=== PATIENT | male | born 1945 | race Caucasian/White ===

== ENCOUNTER 2021-01-29 00:26 | Outpatient (CLI) | payer OTHER, SELFPAY ==
--- NOTE | 2021-01-29 10:20 | DI.US_ITS ---
APPROVED REPORT EXAM: Comprehensive 2D, Doppler, and color-flow Echocardiogram Patient Location: Out-Patient Recreation Leader: Morena Carson RDCS (AE) Indications: SOB on exertion, HTN, COPD Other Information Study Quality: Adequate Conclusion Left Ventricle : The left ventricle is normal size. The left ventricular systolic function is normal. The left ventricular ejection fraction is within the normal range. There is normal left ventricular wall thickness. There is normal LV segmental wall motion. The left ventricular diastolic function is normal. LVEF is 60%. Right Ventricle : The right ventricle is normal size. The right ventricular systolic function is norm al. The RVSP is 28.1mmHg. Atria : The left atrium size is normal. The right atrium size is normal. Valves: There are no hemodynamically significant valvular lesions. Great Vessels : The aortic root is normal in size. The ascending aorta is mildly dilated. Aortic arch is normal in caliber. IVC is normal in size and collapses >50% with inspiration. Wall motion Left Ventricle The left ventricle is normal size. The left ventricular systolic function is normal. The left ventric ular ejection fraction is within the normal range. There is normal left ventricular wall thickness. T here is normal LV segmental wall motion. The left ventricular diastolic function is normal. There is no ventricular septal defect visualized. LVEF is 60%. Right Ventricle The right ventricle is normal size. The right ventricular systolic function is normal. The RVSP is 28 .1mmHg. Atria The left atrium size is normal. The right atrium size is normal. The interatrial septum is intact wit h no evidence for an atrial septal defect. Atrial septal aneurysm is present. Aortic Valve The aortic valve is normal in structure. Aortic valve is trileaflet. There is no aortic valvular sten osis. No aortic regurgitation is present. Mitral Valve The mitral valve is normal in structure. No evidence of mitral valve stenosis. Trace mitral regurgita tion. Tricuspid Valve The tricuspid valve is normal in structure. There is no tricuspid valve stenosis. Trace to mild tricu spid regurgitation. Pulmonic Valve The pulmonary valve is normal in structure. There is no pulmonic valvular stenosis. Trace pulmonic re gurgitation. Great Vessels The aortic root is normal in size. The ascending aorta is mildly dilated. Aortic arch is normal in ca liber. IVC is normal in size and collapses >50% with inspiration. Pericardium There is no pericardial effusion. 2D Dimensions IVSD d PLAX 0.92 cm M: 0.6-1.2 LV Vol A2C d MOD 116.7 mL LVPW d PLAX 0.90 cm M: 0.6 - 1.2 LV Vol A4C d MOD 127.9 mL LVID d PLAX 5.16 cm M: 4.2 - 5.8 LA vol/ BSA A2C s A-L 26.8 mL/m2 LVDs 3.45 cm M: 2.5 - 4.0 LA vol/ BSA A4C s A-L 25.1 mL/m2 Ao Root d 3.39 cm M: 3.1 - 3.7 LA Vol/ BSA Biplane s A-L 26.8 mL/m2 RA Area A4C 13.73 cm2 LA Area A4C s MOD 17.97 cm2 RA Vol/ BSA A4C s A-L 15.8 mL/m2 LA Area A2C s MOD 18.01 cm2 Ao Asc Diam d 3.98 cm M: 2.6 - 3.4 LV EF A4C MOD 61.6 % LV EF Teichholz 60.4 % LV EF A2C MOD 60.6 % LVEF (Fulton's) 61.21 % M: 52 - 72 LV EF Biplane MOD 61.2 % LV Volume 91.29 mL M: 62 - 150 SV 76.16 mL LV Volume Index 42.65 mL/m2 M: 34 - 74 SV Index 35.60 mL/m2 LV Vol Biplane MOD 124.4 mL FS 32.40 % M-Mode TAPSE 2.78 cm (M/F) >1.7 LV Diastology MV E' medial 0.083 (>0.07 m/s) E/A Ratio 0.8 LV E/e MED 8.60 (<14) MV E Vmax 0.72 (0.4-1.3 m/s) MV E' lateral 0.083 (>0.1 m/s) MV A Vmax 0.85 (0.4-1.3 m/s) LV E/e LAT 8.60 (<14) MV E/A Ratio 0.82 MV E/E' medial 8.64 MV E/E' lateral 8.64 Aortic Valve LVOT Area 2.90 cm2 AoV Area Vmax 1.69 cm2 LVOT Vmax 1.05 m/s AoV Area/ BSA (Vmax) 0.79 cm2/m2 LVOT Mean Pedro. 0.65 m/s FANNY Mean Pedro. 1.54 cm2 LVOT Peak Grad 4.4 mmHg FANNY Mean Pedro. Index 0.72 cm2/m2 LVOT Mean Grad 2.0 mmHg LVOT VTI 0.220 m LVOT Diam s 1.90 cm AoV Vmax 1.81 m/s Velocity Ratio 0.58 AoV Mean Pedro. 1.22 m/s AoV Peak Grad 13.1 mmHg LVOT SV 63.80 mL AoV Mean Grad 6.9 mmHg AoV VTI 0.338 m AoV Area VTI 1.89 cm2 AoV Area/ BSA (VTI) 0.88 cm/m2 Mitral Valve MV DT 199 (160-240 msec) MV PHT 58 msec MV Area PHT 3.81 cm2 MV VTI 0.345 m MV Area VTI 1.85 (4.0-6.0 cm2) Pulmonary Valve PV Vmax 0.95 (0.5-1.5 m/s) RVOT Peak Gr. 2.19 mmHg PV Peak Grad 3.6 mmHg RVOT Mean Gr. 1.10 mmHg PV Mean Grad 1.9 mmHg RVOT VTI 0.168 m PV VTI 0.211 m RVOT Vmax 0.74 m/s Tricuspid Valve TR Peak Grad 25.0 mmHg TR Vmax 2.50 m/s RA Pressure 3.00 mmHg RVSP (TR) 28.1 mmHg
== END 2021-01-29 00:46 ==
PROVIDERS: PCP Nurse Practitioner Primary Care; Visit Provider Nurse Practitioner Primary Care
DX: R06.02 Shortness of breath (principal); I10 Essential (primary) hypertension; J44.9 Chronic obstructive pulmonary disease, unspecified; I77.810 Thoracic aortic ectasia
CPT/HCPCS: 93306

== ENCOUNTER 2021-08-10 12:20 | Emergency (ER) | payer OTHER, SELFPAY ==
[2021-08-10 12:27] VITALS: BP 140/63; PULSE 64; RESP 16; TEMP 36.7; O2SAT 97
--- NOTE | 2021-08-10 12:45 | DI.US_ITS ---
Exam(s) US LOWER EXTREMITY VENOUS RT EXAM: US LOWER EXTREMITY VENOUS RT CLINICAL HISTORY: Pain swelling behind right knee, R/O DVT TECHNIQUE: Grayscale, color, and doppler imaging of the deep venous system of the lower extremity w as performed. COMPARISON: US US ECHOCARDIOGRAM from 01/29/2021 FINDINGS: There is no evidence of intraluminal thrombus and there is normal compression and augmentation demons trated within the common femoral vein, femoral vein, and popliteal vein. In the ipsilateral calf the interrogated veins also exhibit normal compression/ augmentation properti es. The ipsilateral saphenofemoral junction is patent. Incidentally noted is a Hess cyst in the popliteal fossa measuring 5 x 1.8 x 3.2 cm. Appears comple x IMPRESSION: 1. No evidence of DVT in the right lower extremity. 2. 5 cm hess cyst noted in the popliteal fossa DATA REPOSITORY:
--- NOTE | 2021-08-10 13:00 | DI.RAD_ITS ---
Exam(s) XR KNEE RT 3V AP,LAT,FRANCESCA EXAM: XR KNEE RT 3V AP,LAT,FRANCESCA CLINICAL HISTORY: Right knee pain. TECHNIQUE: 2D digital imaging was performed. COMPARISON: No exams were available for comparison FINDINGS: Three views of the right knee reveal no evidence of fracture or obvious joint effusion. There are mi ld degenerative changes in the medial compartment. Lateral compartment appears unremarkable. Fabell a is noted posterolaterally. Also vascular calcification. IMPRESSION: DATA REPOSITORY: RADIATION DOSE DELIVERED:
--- NOTE | 2021-08-10 13:11 | ED.GENADUL_ITS ---
Discharge Plan Disposition Patient Disposition: HOME Condition: Stable Discharge Details Clinical Impression: Synovial cyst of popliteal space [Hess], right knee Primary Care Provider: Cayla Capone ED Provider: Hermelinda Benitez Discharge Instructions Instructions: Hess Cyst (ED) Additional Instructions: The ultrasound shows a posterior moderate size Hess's cyst. No blood clot. I do suspect this is the cause for your pain. Rest, ice, compression, elevation. Follow-up with orthopedics in the next 1 to 2-week. Follow up with primary care provider in 3-5 days. Return to ED sooner if any worsening or concerns. Increase oral fluids. Please take Tylenol or Ibuprofen with food every 4-6 hours as needed for pain and swelling. Referrals: Say Martinez MD [ [facility] STAFF PHYSICIAN] - 1 week Cayla Capone [Primary Care Provider] - Discharge Data Discharge Date/Time-TO BE ENTERED AT DEPARTURE: 08/10/21 14:34 Medical Decision Making 75-year-old male presents to the ER chief complaint of right knee pain. He reports intermittent swelling and pain for the last 5 weeks. Most notably in the popliteal space. He denies any calf pain or erythema. Denies any fever chills or any other associated symptoms. He describes pain as an aching sensation sometimes in the anterior patella. He was sent here by his PCP for ultrasound to rule out DVT. He denies being on any blood thinners currently. He did not take any medication for pain or swelling prior to arrival. He is alert and oriented. X-ray right knee and R lower extremity Doppler ultrasound to rule out DVT ordered at this time. EXAM: US LOWER EXTREMITY VENOUS RT COMPARISON: US US ECHOCARDIOGRAM from 01/29/2021 FINDINGS: There is no evidence of intraluminal thrombus and there is normal compression and augmentation demonstrated within the common femoral vein, femoral vein, and popliteal vein. In the ipsilateral calf the interrogated veins also exhibit normal compression/ augmentation properties. The ipsilateral saphenofemoral junction is patent. Incidentally noted is a Hess cyst in the popliteal fossa measuring 5 x 1.8 x 3.2 cm. Appears complex IMPRESSION: 1. No evidence of DVT in the right lower extremity. 2. 5 cm hess cyst noted in the popliteal fossa EXAM: XR KNEE RT 3V AP,LAT,FRANCESCA CLINICAL HISTORY: Right knee pain. TECHNIQUE: 2D digital imaging was performed. COMPARISON: No exams were available for comparison FINDINGS: Three views of the right knee reveal no evidence of fracture or obvious joint effusion. There are mild degenerative changes in the medial compartment. Lateral compartment appears unremarkable. Fabella is noted posterolaterally. Also vascular calcification. Patient given Jovany wrap and referral to orthopedics instructed on RICE procedures. This text was generated using [employer] dictation system, please disregard any oddities of phrase or misspellings. Patient placed on the orthopedic follow-up list care management. HPI General Mode of arrival: ambulatory . Date/Time Provider Initiated Documentation: 08/10/21 12:41 . Limitations to Documentation: no limitations . Information obtained by: patient, RN notes reviewed and old records reviewed . HPI Narrative: 75-year-old male presents to the ER chief complaint of right knee pain. He reports intermittent swelling and pain for the last 5 weeks. Most notably in the popliteal space. He denies any calf pain or erythema. Denies any fever chills or any other associated symptoms. He describes pain as an ach ing sensation sometimes in the anterior patella. He was sent here by his PCP for ultrasound to rule out DVT. He denies being on any blood thinners currently. He did not take any medication for pain or swelling prior to arrival. He is alert and oriented Related Data Allergies Allergy/AdvReac Type Severity Reaction Status Date / Time bacitracin Allergy Intermediate Hives Unverified 08/10/21 12:30 General Stated Complaint: Vascular MÓNICA: 3 Review of Systems All systems reviewed & are unremarkable except as noted in HPI and below [facility] Social History Smoking risk assessment performed?: No Do you feel safe at home: Yes Do you feel safe in your relationship?: Yes Exam Const General: cooperative, healthy appearing, comfortable, well developed and well groomed Nutritional Appearance: average body habitus and well nourished Orientation: alert, awake and oriented x3 Resp Effort & Inspection: able to speak in complete sentences, no audible wheezes, no cough and no respiratory distress Auscultation: clear to auscultation bilaterally Cardio Rate: regular rate Rhythm: regular rhythm Heart Sounds: S1 normal Extrem Right lower extremity: full ROM, normal capillary refill and knee Details: normal to inspection, tenderness, swelling Location: of the popliteal fossa and normal ROM; no ecchymosis and no unusual warmth; no cyanosis, no edema and lower leg not examined Course Vital Signs Vital signs: Vital Signs Temperature 36.7 C 08/10/21 12:27 Pulse 64 08/10/21 12:27 Respiratory Rate 16 08/10/21 12:27 Blood Pressure 140/63 08/10/21 12:27 Pulse Oximetry 97 08/10/21 12:27 Temperature 36.7 C 08/10/21 12:27 Temperature Source Temporal Artery Scan 08/10/21 12:27 Pulse 64 08/10/21 12:27 Respiratory Rate 16 08/10/21 12:27 Blood Pressure 140/63 08/10/21 12:27 Blood Pressure Position Sitting 08/10/21 12:27 Pulse Oximetry 97 08/10/21 12:27 Oxygen Delivery Method Room Air 08/10/21 12:27 Oxygen Flow Rate 0 08/10/21 12:27 Pain Level 4 08/10/21 12:27
== END 2021-08-10 14:34 | disposition home or self-care (01) ==
PROVIDERS: Emergency Provider Registered Nurse Emergency; PCP Nurse Practitioner Primary Care
DX: M71.21 Synovial cyst of popliteal space [Baker], right knee (principal)
CPT/HCPCS: 73562; 99284; 93971

== ENCOUNTER 2022-12-20 14:12 | Emergency (ER) | payer OTHER, SELFPAY ==
[2022-12-20 14:18] VITALS: BP 130/75; PULSE 56; RESP 18; TEMP 36.6; O2SAT 96
--- NOTE | 2022-12-20 14:30 | DI.RAD_ITS ---
Exam(s) XR SHOULDER RT COMPLETE 2+V EXAM: XR SHOULDER RT COMPLETE 2+V CLINICAL HISTORY: Right shoulder pain sp fall. TECHNIQUE: 2D digital imaging was performed of the right shoulder. Four images were obtained. AP, Grashey, and Y views were obtained. The patient was unable to tolerate an axillary view. COMPARISON: No exams were available for comparison FINDINGS: BONES: No acute fracture is present. No bony destructive lesion is seen. There are postsurgical hess es seen in the scapula. JOINTS: No dislocation present. Degenerative changes are seen at the acromioclavicular joint. SOFT TISSUE: Normal. IMPRESSION: No acute fracture or dislocation. DATA REPOSITORY: RADIATION DOSE DELIVERED:
--- NOTE | 2022-12-20 14:34 | W.ED.GENAD ---
Discharge Plan Disposition Patient Disposition: Home Discharge Details Clinical Impression: Acute pain of right shoulder Primary Care Provider: Cayla Capone ED Provider: Medardo Mckinney [place] Meds and New Rx's Prescriptions: New lidocaine [Lidoderm] 5 % adhesive patch,medicated 1 patch topical DAILY Qty: 15 0RF Rx Instructions: leave on most painful area for up to 12 hrs Continued multivitamin Tablet 1 tab PO DAILY atorvastatin 40 mg tablet 40 mg PO 1XD Patient Comments: 1 tablet by mouth once a day fluticasone propion-salmeterol 250-50 mcg/dose Blister With Device 1 inh INHALATION BID clonidine HCl 0.1 mg tablet 0.1 mg PO BID Patient Comments: 1 tablet by mouth twice a day as needed lidocaine [Lidocaine Pain Relief] 4 % Adhesive Patch,Medicated 1 patch TOPICAL DAILY PRN cromolyn 4 % drops 2 drp ophthalmic (eye) 4XD Patient Comments: 2 drop into left eye three times a day as needed tamsulosin 0.4 mg capsule 0.8 mg PO DAILY Patient Comments: 2 capsule by mouth once a day amlodipine 10 mg tablet 10 mg PO 1XD Patient Comments: 1 tablet by mouth once a day diclofenac sodium 0.1 % Drops 1 drp ophthalmic (eye) PRN PRN omeprazole 20 mg capsule,delayed release(DR/EC) 20 mg PO 1XD Patient Comments: 1 capsule by mouth once a day hydrochlorothiazide 25 mg tablet 25 mg PO DAILY Patient Comments: 1 tablet by mouth once a day gabapentin 100 mg Capsule 100 mg PO HS albuterol 90 mcg/actuation Aerosol 2 mcg INHALATION TID calcium carbonate-vitamin D2 600 mg calcium- 200 unit Tablet 200 tab PO DAILY epinephrine 0.3 mg/0.3 mL Auto-Injector 0.3 mg IM ONCE PRN Rx Instructions: as a single dose; may repeat once losartan 100 mg tablet 100 mg PO DAILY Patient Comments: 1 tablet by mouth once a day glipizide 5 mg tablet 5 mg PO 1XD Patient Comments: 1 tablet by mouth twice a day carboxymethylcellulose Granules 0.5 grnl MISCELLANEOUS 4XD capsaicin 0.1 % Cream 0.1 applic TOPICAL BID cholecalciferol (vitamin D3) 25 mcg (1,000 unit) Tablet 25 mcg PO DAILY melatonin 5 mg Tablet 10 mg PO DAILY alogliptin 12.5 mg tablet 12.5 mg PO DAILY Patient Comments: 1 tablet by mouth once a day Discharge Instructions Instructions: Shoulder Pain (ED) Additional Instructions: Please read all of the information that accompanies these instructions. You were seen in the emergency department for your shoulder pain. Your x-ray showed no sign of any fractures. As we discussed, you may benefit from an MRI but you should follow-up with your primary care provider. Please schedule an appointment with your primary care provider later this week. Please return to the emergency department if you lose sensation in your hand or have worsening pain. For your pain please take medications as follows: 1. Take acetaminophen (Tylenol), 1,000 mg (two 500 mg tabs) every 6 hours 2. Take ibuprofen (Advil), 200 mg every 6 hours. You are also receiving a prescription for a patch with numbing medicine which you should use as directed. Discharge Data Discharge Date/Time-TO BE ENTERED AT DEPARTURE: 12/20/22 16:06 Medical Decision Making Primary survey intact. Reassuring shock index. On secondary survey patient has tenderness over his right shoulder. Will obtain radiographs to assess for any acute osseous abnormalities. Based on the patient's clinical exam my suspicion is extremely low for dislocation. No head strike nor nausea nor vomiting to suggest intracranial hemorrhage. No hypoxia nor tachycardia and no reported shortness of breath so doubt pneumothorax. If plain films are negative suspect that patient will benefit from outpatient follow-up with his PMD with the possibility of MRI if the patient's symptoms persist as it certainly possible that he could have ligamentous injury as opposed to a MSK strain. He has good strength in his right upper extremity so my suspicion is low for brachial plexus injury. No midline cervical or thoracic spinal tenderness to suggest benefit from CT cervical nor thoracic spine. Based on mechanism my suspicion is exceedingly low for scapular fracture so will defer CT scan at this juncture. Given no abdominal pain and duration of time since fall I am not concerned for referred pain from an intraabdominal injury. Warm well-perfused right hand so doubt vascular injury. 3:30 PM X-ray negative. Will pursue an empiric trial of expectant outpatient management. I did recommend to the patient that he follow-up with his primary care provider as I advised concerned that he may benefit from an MRI if his symptoms do not improve with conservative management. We discussed the possibility of a ligamentous injury. HPI General Date/Time Provider Initiated Documentation: 02/27/23 14:34. HPI Narrative: This is a [id number] 76-year-old male not anticoagulated arrived to the emergency department via private vehicle in the setting of a fall. Patient reports that 5 or 6 days ago he was walking down a paved driveway while walking his dog. He inadvertently stepped on some black ice and slipped. He fell backwards and landed on his back. He subsequently, 3 to 4 days ago, developed pain in his right shoulder. He did not hit his head. He has not been nauseous nor vomiting. He denies loss of consciousness. He is not anticoagulated. Related Data Home Medications Medication Instructions Recorded Confirmed albuterol 90 mcg/actuation aerosol 2 mcg inhalation TID 12/20/22 12/20/22 inhaler alogliptin 12.5 mg tablet 12.5 mg PO DAILY 12/20/22 12/20/22 amlodipine 10 mg tablet 10 mg PO 1XD 12/20/22 12/20/22 atorvastatin 40 mg tablet 40 mg PO 1XD 12/20/22 12/20/22 calcium carb-ergocalciferol (vit 200 tab PO DAILY 12/20/22 12/20/22 D2) 600 mg calcium-200 unit tablet capsaicin 0.1 % topical cream 0.1 applic topical BID 12/20/22 12/20/22 carboxymethylcellulose 0.5 grnl miscellaneous 4XD 12/20/22 12/20/22 cholecalciferol (vitamin D3) 25 25 mcg PO DAILY 12/20/22 12/20/22 mcg (1,000 unit) tablet clonidine HCl 0.1 mg tablet 0.1 mg PO BID 12/20/22 12/20/22 cromolyn 4 % eye drops 2 drp ophthalmic (eye) 4XD 12/20/22 12/20/22 diclofenac sodium 0.1 % eye drops 1 drp ophthalmic (eye) PRN PRN 12/20/22 12/20/22 epinephrine 0.3 mg/0.3 mL 0.3 mg IM ONCE PRN 12/20/22 12/20/22 injection, auto-injector fluticasone 250 mcg-salmeterol 50 1 inh inhalation BID 12/20/22 12/20/22 mcg/dose blistr powdr for inhalation gabapentin 100 mg capsule 100 mg PO HS 12/20/22 12/20/22 glipizide 5 mg tablet 5 mg PO 1XD 12/20/22 12/20/22 hydrochlorothiazide 25 mg tablet 25 mg PO DAILY 12/20/22 12/20/22 lidocaine 4 % topical patch 1 patch topical DAILY PRN 12/20/22 12/20/22 (Lidocaine Pain Relief) lidocaine 5 % topical patch 1 patch topical DAILY #15 ea 12/20/22 (Lidoderm) losartan 100 mg tablet 100 mg PO DAILY 12/20/22 12/20/22 melatonin 5 mg tablet 10 mg PO DAILY 12/20/22 12/20/22 multivitamin 1 tab PO DAILY 12/20/22 12/20/22 omeprazole 20 mg capsule,delayed 20 mg PO 1XD 12/20/22 12/20/22 release tamsulosin 0.4 mg capsule 0.8 mg PO DAILY 12/20/22 12/20/22 Previous Rx's Medication Instructions Recorded lidocaine 5 % topical patch 1 patch topical DAILY #15 ea 12/20/22 (Lidoderm) Allergies Allergy/AdvReac Type Severity Reaction Status Date / Time bacitracin Allergy Intermediate Hives Unverified 12/20/22 14:23 antivenin,crotalidae Allergy Unverified 12/20/22 15:10 polyvalent imm felodipine Allergy Unverified 12/20/22 15:10 lisinopril Allergy Unverified 12/20/22 15:10 niacin Allergy Unverified 12/20/22 15:10 General Stated Complaint: Orthopedic MÓNICA: 4 PFSH All Active Problems (Updated 12/20/22 @ 15:30 by Medardo Mckinney MD) Synovial cyst of popliteal space [Hess], right knee (Acute) Acute pain of right shoulder (Acute) Social History Smoking/Tobacco Use Status: Never Smoking risk assessment performed?: Yes Alcohol Intake: current Alcohol Intake frequency: a few times a week Drug use: Daily Substance use type: marijuana Do you feel safe at home: Yes Do you feel safe in your relationship?: Yes Exam Narrative Exam Narrative: General: Well-appearing in no acute distress speaking in complete sentences. Head: Normocephalic, atraumatic Ear, nose, mouth, throat: Grossly normal inspection. Normal voice, handling secretions normally. Neck: Trachea midline. Cardiovascular: Well-perfused distal extremities. Respiratory: Nonlabored respiration. Gastrointestinal: Nondistended abdomen. Musculoskeletal: No edema. Moving all 4 extremities spontaneously. Right upper extremity with 5 out of 5 strength in flexion and extension at the elbow and flexion and extension at the wrist. No pain with pronation and supination. Right hand warm and well-perfused with 2+ right radial pulse. Sensation and motor function intact in the right hand across the radial, median, and ulnar nerve distributions. Patient is able to abduct his shoulder to approximately 90 degrees. He is able to flex his shoulder approximately 90 degrees. He can extend his shoulder approximately 15 degrees. He is able to touch his right hand to his contralateral left shoulder Skin: Normal for age and race, grossly normal temperature and turgor. No acute rash. Neurologic: Alert and appropriate, no apparent acute deficits. Psychiatric: Mood and manner are appropriate. Grooming and personal hygiene are appropriate. Course Vital Signs Vital signs: Vital Signs Temperature 36.6 C 12/20/22 14:18 Pulse 56 L 12/20/22 14:18 Respiratory Rate 18 12/20/22 14:18 Blood Pressure 130/75 12/20/22 14:18 Pulse Oximetry 96 12/20/22 14:18 Temperature 36.6 C 12/20/22 14:18 Temperature Source Oral 12/20/22 14:18 Pulse 56 L 12/20/22 14:18 Respiratory Rate 18 12/20/22 14:18 Respiratory Effort Normal, Non-Labored 12/20/22 14:23 Blood Pressure 130/75 12/20/22 14:18 Blood Pressure Position Sitting 12/20/22 14:18 Pulse Oximetry 96 12/20/22 14:18 Oxygen Delivery Method Room Air 12/20/22 14:18 Oxygen Flow Rate 0 12/20/22 14:18 PAWSS Have you Been Recently Intoxicated or Drunk Within the Last 30 days?: No Have you Ever Experienced Previous Episodes of Alcohol Withdrawal?: No Have you ever Experienced Withdrawal Seizures?: No Have you ever Experienced Delirium Tremens(DT)s?: No Have you ever undergone Alcohol Rehabilitation Treatment (i.e, inpt ot outpatient treatment programs)?: No Have you ever Experienced Blackouts?: No Have you ever Combined Alcohol with other Downers within the last 90 days?: No Have you ever Combined Alcohol with any other Substance of Abuse during the last 90 days?: No Positive Blood Alcohol level on Presentation? [PCS.BAL]: No Evidence of Increased Autonomic Activity (i.e. HR>120, tremor, sweating, agitation, nausea)?: No Result: 0
[2022-12-20 16:01] VITALS: BP 115/76; PULSE 73; RESP 18; TEMP 36.9; O2SAT 94
== END 2022-12-20 16:06 | disposition home or self-care (01) ==
PROVIDERS: Emergency Provider Emergency Medicine; PCP Nurse Practitioner Primary Care
DX: G89.11 Acute pain due to trauma (principal); M25.511 Pain in right shoulder; W00.0XXA Fall on same level due to ice and snow, initial encounter; Y93.K1 Activity, walking an animal; Y92.480 Sidewalk as the place of occurrence of the external cause
CPT/HCPCS: 99283; 73030; 99284

== ENCOUNTER 2024-08-05 13:24 | Emergency (ER) | payer OTHER, SELFPAY ==
[2024-08-05] VITALS (19 sets, daily range): BP systolic 130–159; BP diastolic 68–85; PULSE 52–105; RESP 18; TEMP 36.6; O2SAT 91–97
--- NOTE | 2024-08-05 13:47 | ED.GENADUL_ITS ---
Discharge Plan Disposition Patient Disposition: Home Condition: Stable Discharge Details Clinical Impression: Acute UTI Primary Care Provider: Cayla Capone ED Provider: Hermelinda Benitez Home Meds and New Rx's Prescriptions: New cephalexin 500 mg capsule 500 mg PO BID 7 Days Qty: 14 0RF Rx Instructions: Take 1 capsule by mouth twice daily for the next 7 days No Action multivitamin Tablet 1 tab PO DAILY atorvastatin 40 mg tablet 40 mg PO 1XD Patient Comments: 1 tablet by mouth once a day fluticasone propion-salmeterol 250-50 mcg/dose Blister With Device 1 inh INHALATION BID clonidine HCl 0.1 mg tablet 0.1 mg PO BID Patient Comments: 1 tablet by mouth twice a day as needed lidocaine [Lidocaine Pain Relief] 4 % Adhesive Patch,Medicated 1 patch TOPICAL DAILY PRN cromolyn 4 % drops 2 drp ophthalmic (eye) 4XD Patient Comments: 2 drop into left eye three times a day as needed tamsulosin 0.4 mg capsule 0.8 mg PO DAILY Patient Comments: 2 capsule by mouth once a day amlodipine 10 mg tablet 10 mg PO 1XD Patient Comments: 1 tablet by mouth once a day diclofenac sodium 0.1 % Drops 1 drp ophthalmic (eye) PRN PRN omeprazole 20 mg capsule,delayed release(DR/EC) 20 mg PO 1XD Patient Comments: 1 capsule by mouth once a day hydrochlorothiazide 25 mg tablet 25 mg PO DAILY Patient Comments: 1 tablet by mouth once a day gabapentin 100 mg Capsule 100 mg PO HS albuterol 90 mcg/actuation Aerosol 2 mcg INHALATION TID calcium carbonate-vitamin D2 600 mg calcium- 200 unit Tablet 200 tab PO DAILY epinephrine 0.3 mg/0.3 mL Auto-Injector 0.3 mg IM ONCE PRN Rx Instructions: as a single dose; may repeat once losartan 100 mg tablet 100 mg PO DAILY Patient Comments: 1 tablet by mouth once a day glipizide 5 mg tablet 5 mg PO 1XD Patient Comments: 1 tablet by mouth twice a day carboxymethylcellulose Granules 0.5 grnl MISCELLANEOUS 4XD capsaicin 0.1 % Cream 0.1 applic TOPICAL BID cholecalciferol (vitamin D3) 25 mcg (1,000 unit) Tablet 25 mcg PO DAILY melatonin 5 mg Tablet 10 mg PO DAILY alogliptin 12.5 mg tablet 12.5 mg PO DAILY Patient Comments: 1 tablet by mouth once a day lidocaine [Lidoderm] 5 % adhesive patch,medicated 1 patch topical DAILY Qty: 15 0RF Rx Instructions: leave on most painful area for up to 12 hrs Discharge Instructions Instructions: Urinary Tract Infection, Adult ED Additional Instructions: At this time it appears you have a urinary tract infection. Please take the antibiotic twice daily as directed with yogurt or a probiotic. Follow up with primary care provider in 3-5 days. Return to ED sooner if any worsening or concerns. Increase oral fluids. Referrals: Cayla Capone [Primary Care Provider] - 5 days HPI General Mode of arrival: ambulatory . Date/Time Provider Initiated Documentation: 08/05/24 13:36 . Limitations to Documentation: no limitations . Information obtained by: patient, RN notes reviewed and old records reviewed . HPI Narrative: 78-year-old male with a history of urethral reconstruction reports intermittent urinary hesitancy and incontinence of urine over the last couple days. He reports he began with an upset stomach. Difficulty urinating. He also reports 2 episodes of loose stools. Denies any abdominal pain denies any fever or chills. Other past medical history includes hypertension, high cholesterol. Denies any chest pain shortness of breath or any other associated symptoms. Related Data Home Medications ?Medication ?Instructions ?Recorded ?Confirmed albuterol 90 mcg/actuation aerosol 2 mcg inhalation TID 12/20/22 12/20/22 inhaler alogliptin 12.5 mg tablet 12.5 mg PO DAILY 12/20/22 12/20/22 amlodipine 10 mg tablet 10 mg PO 1XD 12/20/22 12/20/22 atorvastatin 40 mg tablet 40 mg PO 1XD 12/20/22 12/20/22 calcium carb-ergocalciferol (vit 200 tab PO DAILY 12/20/22 12/20/22 D2) 600 mg calcium-200 unit tablet capsaicin 0.1 % topical cream 0.1 applic topical BID 12/20/22 12/20/22 carboxymethylcellulose 0.5 grnl miscellaneous 4XD 12/20/22 12/20/22 cholecalciferol (vitamin D3) 25 25 mcg PO DAILY 12/20/22 12/20/22 mcg (1,000 unit) tablet clonidine HCl 0.1 mg tablet 0.1 mg PO BID 12/20/22 12/20/22 cromolyn 4 % eye drops 2 drp ophthalmic (eye) 4XD 12/20/22 12/20/22 diclofenac sodium 0.1 % eye drops 1 drp ophthalmic (eye) PRN PRN 12/20/22 12/20/22 epinephrine 0.3 mg/0.3 mL 0.3 mg IM ONCE PRN 12/20/22 12/20/22 injection, auto-injector fluticasone 250 mcg-salmeterol 50 1 inh inhalation BID 12/20/22 12/20/22 mcg/dose blistr powdr for inhalation gabapentin 100 mg capsule 100 mg PO HS 12/20/22 12/20/22 glipizide 5 mg tablet 5 mg PO 1XD 12/20/22 12/20/22 hydrochlorothiazide 25 mg tablet 25 mg PO DAILY 12/20/22 12/20/22 lidocaine 4 % topical patch 1 patch topical DAILY PRN 12/20/22 12/20/22 (Lidocaine Pain Relief) lidocaine 5 % topical patch 1 patch topical DAILY #15 ea 12/20/22 (Lidoderm) losartan 100 mg tablet 100 mg PO DAILY 12/20/22 12/20/22 melatonin 5 mg tablet 10 mg PO DAILY 12/20/22 12/20/22 multivitamin 1 tab PO DAILY 12/20/22 12/20/22 omeprazole 20 mg capsule,delayed 20 mg PO 1XD 12/20/22 12/20/22 release tamsulosin 0.4 mg capsule 0.8 mg PO DAILY 12/20/22 12/20/22 cephalexin 500 mg capsule 500 mg PO BID UTI 7 days #14 caps 08/05/24 Previous Rx's ?Medication ?Instructions ?Recorded lidocaine 5 % topical patch 1 patch topical DAILY #15 ea 12/20/22 (Lidoderm) cephalexin 500 mg capsule 500 mg PO BID UTI 7 days #14 caps 08/05/24 Allergies Allergy/AdvReac Type Severity Reaction Status Date / Time bacitracin Allergy Intermediate Hives Unverified 08/05/24 13:33 antivenin,crotalidae Allergy Unknown Other (See Unverified 08/05/24 13:33 polyvalent imm Comment) felodipine Allergy Unknown Other (See Unverified 08/05/24 13:33 Comment) niacin AdvReac Unknown Other (See Unverified 08/05/24 13:33 Comment) lisinopril AdvReac cough Unverified 08/05/24 13:33 General Stated Complaint: Nausea/Vomit/Diar MÓINCA: 3 Review of Systems All systems reviewed & are unremarkable except as noted in HPI and below Gastrointestinal Gastrointestinal: Denies abdominal pain, Denies hematochezia, Denies cramping, Reports fecal incontinence, Denies diarrhea, Reports loose stools, Denies nausea and Denies vomiting Genitourinary Genitourinary: Reports as per HPI, Reports oliguria, Reports difficulty urinating, Reports urinary hesitancy, Reports urinary incontinence and Reports urinary urgency Exam Narrative Exam Narrative: Constitutional: Alert and oriented x3. Appears stated age. Normal body habitus. Head: Normocephalic, no trauma. Eyes: Pupils PERRL, Red reflex noted, EOM's intact. Eyelids symmetrical without lesions, discharge, or swelling. ENT: Bilateral TM's WNL, External ear normal to inspection, no mastoid TTP, swelling, or erythema, Nasal turbinates WNL, no nasal discharge. Normal dentition, Posterior pharynx WNL, no exudate. Chest: RRR, Normal S1, S2, distal pulses intact. Resp: Lungs clear to auscultation bilaterally, no wheezes, rales, or rhonchi. Abdomen: Soft, non-distended, Normoactive bowel sounds all 4 quads. Musculoskeletal: Normal gait, Moves all 4 extremities without difficulty. Skin: No suspicious rashes or lesions. Capillary refill less than 2 sec. Neurologic: Cranial nerves II-XII intact. Alert and oriented x 3. Motor: No deficits noted. Sensory: Intact bilaterally all 4 extremities. Hematologic/Lymphatic: No ecchymosis, no lymphadenopathy. Course Vital Signs Vital signs: Vital Signs Temperature 36.6 C 08/05/24 13:27 Pulse 105 H 08/05/24 13:27 Respiratory Rate 18 08/05/24 13:27 Blood Pressure 150/85 H 08/05/24 13:27 Pulse Oximetry 93 08/05/24 13:27 Temperature 36.6 C 08/05/24 13:27 Pulse 105 H 08/05/24 13:27 Respiratory Rate 18 08/05/24 13:27 Blood Pressure 150/85 H 08/05/24 13:27 Pulse Oximetry 93 08/05/24 13:27 Medical Decision Making 78-year-old male with a history of urethral reconstruction reports intermittent urinary hesitancy and incontinence of urine over the last couple days. He reports he began with an upset stomach. Difficulty urinating. He also reports 2 episodes of loose stools. Denies any abdominal pain denies any fever or chills. Other past medical history includes hypertension, high cholesterol. Denies any chest pain shortness of breath or any other associated symptoms. Will order CBC CMP, lipase urinalysis. Differential diagnosis includes UTI, urinary retention, gastroenteritis, viral illness. Informed by staff consultant that patient had 200 cc in his bladder on bladder scan. CBC shows no leukocytosis, CMP within normal limits. BUN/creatinine within normal limits GFR is 88, glucose 135 lipase 89. Urinalysis is still pending at this time. Urinalysis shows positive nitrites small leukocytes. Will give cephalexin 500 mg twice daily. This text was generated using [employer] system, please disregard any oddities of phrase or misspellings. Medical Records Medical records reviewed: Yes I reviewed the patient's medical records. Lab Data Lab results reviewed: Yes I reviewed the patient's lab results. Labs: Laboratory Tests Range/Units 08/05/24 08/05/24 14:00 15:07 WBC (4.4-10.8) 10^3/uL 9.03 RBC (4.36-5.78) 10^6/uL 4.93 Hgb (13.5-17.5) g/dL 15.0 Hct (40.0-50.0) % 44.7 MCV (80-95) fL 91 MCH (27.0-33.0) pg 30.4 MCHC (32.0-36.0) % 33.6 RDW (11.8-14.1) % 13.3 Plt Count (130-400) 10^3/uL 201 MPV (8.0-11.0) fL 10.8 Immature Gran % % 0.3 Neutrophils % % 70.4 Lymphocytes % % 19.4 Monocytes % % 8.0 Eosinophils % % 1.7 Basophils % % 0.2 Nucleated RBC % (0.0-0.3) % 0.0 Absolute Neutrophils (1.2-6.7) 10^3/uL 6.36 Absolute Lymphocytes (1.2-3.4) 10^3/uL 1.75 Absolute Monocytes (0.1-0.8) 10^3/uL 0.72 Absolute Eosinophils (0.0-0.7) 10^3/uL 0.15 Absolute Basophils (0.0-0.2) 10^3/uL 0.02 Sodium (136-145) mmol/L 144 Potassium (3.5-5.1) mmol/L 3.8 Chloride (98-107) mmol/L 107 Carbon Dioxide (21.0-32.0) mmol/L 25.3 Anion Gap (3-11) mmol/L 11.7 H BUN (7-18) mg/dL 12 Creatinine (0.70-1.30) mg/dL 0.9 Est GFR (CKD-EPI 2020) (mL/min/1.73m2) 88.51 Glucose (74-106) mg/dL 135 H Calcium (8.5-10.1) mg/dL 9.1 Magnesium (1.8-2.4) mg/dL 1.9 Total Bilirubin (0.2-1.0) mg/dL 0.70 AST (15-37) U/L 29 ALT (16-63) U/L 37 Alkaline Phosphatase (46-116) U/L 95 Total Protein (6.4-8.2) g/dL 7.2 Albumin (3.4-5.0) g/dL 3.8 Lipase (16-77) U/L 89 H Urine Color (Yellow) Yellow Urine Clarity (Clear) Clear Urine pH (5-8) 5.5 Ur Specific [place] (1.005-1.025) 1.015 Urine Protein (Neg-Trace) mg/dL Negative Urine Ketones (Negative) mg/dL Trace H Urine Blood (Negative) Negative Urine Nitrite (Negative) Positive H Urine Bilirubin (Negative) Negative Urine Urobilinogen (Up to 0.2) mg/dL 0.2 Ur Leukocyte Esterase (Negative) Small H Urine Glucose (Negative) mg/dL Negative Quality:SDOH Health Related Social Needs: No Data to Display PFSH All Active Problems (Updated 08/05/24 @ 15:39 by Hermelinda Benitez NP) Acute UTI (Acute) Synovial cyst of popliteal space [Hess], right knee (Acute) Social History Smoking/Tobacco Use Status: Never Smoking risk assessment performed?: Yes Alcohol Intake: current Alcohol Intake frequency: a few times a week Drug use: Daily Substance use type: marijuana Do you feel safe at home: Yes Do you feel safe in your relationship?: Yes
[2024-08-05 14:06] LABS: Abs Immature Grans 0.03 10^3/uL (0.0-0.06); Absolute Basophil Count 0.02 10^3/uL (0.0-0.2); Absolute Eosinophil Count 0.15 10^3/uL (0.0-0.7); Absolute Lymphocyte Count 1.75 10^3/uL (1.2-3.4); Absolute Monocyte Count 0.72 10^3/uL (0.1-0.8); Absolute Neutrophil Count 6.36 10^3/uL (1.2-6.7); Basophils % 0.2 %; Eosinophils % 1.7 %; HCT 44.7 % (40.0-50.0); Immature Grans % 0.3 %; Lymphocytes % 19.4 %; MCH 30.4 pg (27.0-33.0); MCHC 33.6 % (32.0-36.0); MCV 91 fL (80-95); MPV 10.8 fL (8.0-11.0); Neutrophils % 70.4 %; Platelet Count 201 10^3/uL (130-400); RBC 4.93 10^6/uL (4.36-5.78); RDW 13.3 % (11.8-14.1); RDW-SD 44.5 fL; WBC 9.03 10^3/uL (4.4-10.8)
[2024-08-05 14:22] LABS: ALT 37 U/L (16-63); AST 29 U/L (15-37); Albumin 3.8 g/dL (3.4-5.0); Alkaline Phosphatase 95 U/L (46-116); Anion Gap 11.7 mmol/L (3-11); BUN 12 mg/dL (7-18); CO2 25.3 mmol/L (21.0-32.0); CREATININE 0.9 mg/dL (0.70-1.30); Calcium 9.1 mg/dL (8.5-10.1); Chloride 107 mmol/L (98-107); Estimated GFR 88.51 (mL/min/1.73m2); Glucose 135 mg/dL (74-106); Lipase 89 U/L (16-77); Magnesium 1.9 mg/dL (1.8-2.4); Potassium 3.8 mmol/L (3.5-5.1); Sodium 144 mmol/L (136-145); Total Protein 7.2 g/dL (6.4-8.2)
[2024-08-05 15:35] LABS: Bilirubin Negative (Negative); Blood Negative (Negative); Clarity Clear (Clear); Glucose Negative (Negative); Ketones Trace mg/dL (Negative); Leukocyte Esterase Small (Negative); Nitrite Positive (Negative); Specific Gravity 1.015 (1.005-1.025); Urobilinogen 0.2 mg/dL (Up to 0.2); pH 5.5 (5-8)
[2024-08-05] MEDS: Cephalexin 500 MG CAP PO (15:50)
[2024-08-05] MEDS: Cephalexin 500 MG CAP, 2 CAPS/BTL PO (15:50)
[2024-08-05 15:51] LABS: Bacteria Many HPF (Negative); C & S Indicated? Yes; Casts Negative LPF (Negative); Crystals Negative HPF (Negative); Epithelial Cells Rare HPF (Negative); Mucus Trace (Negative); RBC 0-2 HPF (0-2)
== END 2024-08-05 15:51 | disposition home or self-care (01) ==
PROVIDERS: Emergency Provider Registered Nurse Emergency; PCP Nurse Practitioner Primary Care
DX: N39.0 Urinary tract infection, site not specified (principal); I10 Essential (primary) hypertension; E78.00 Pure hypercholesterolemia, unspecified
CPT/HCPCS: 80053; 83690; 87077; 99284; 81003; 81015; 83735; 85025; 87086; 87186; 99283

== ENCOUNTER 2025-06-15 10:53 | Emergency (ER) | payer OTHER, SELFPAY ==
[2025-06-15 10:54] VITALS: BP 177/97; PULSE 65; RESP 18; TEMP 36.9; O2SAT 95
--- NOTE | 2025-06-15 11:14 | W.ED.GENAD ---
Discharge Plan Disposition Patient Disposition: Home Condition: Stable Discharge Details Clinical Impression: Laceration of left index finger Primary Care Provider: Cayla Capone ED Provider: Michael Mg Phoenix Meds and New Rx's Prescriptions: New cephalexin 500 mg tablet 500 mg PO TID Qty: 15 0RF Continued multivitamin Tablet 1 tab PO DAILY atorvastatin 40 mg tablet 40 mg PO 1XD Patient Comments: 1 tablet by mouth once a day fluticasone propion-salmeterol 250-50 mcg/dose Blister With Device 1 inh INHALATION BID clonidine HCl 0.1 mg tablet 0.1 mg PO BID Patient Comments: 1 tablet by mouth twice a day as needed lidocaine [Lidocaine Pain Relief] 4 % Adhesive Patch,Medicated 1 patch TOPICAL DAILY PRN cromolyn 4 % drops 2 drp ophthalmic (eye) 4XD Patient Comments: 2 drop into left eye three times a day as needed tamsulosin 0.4 mg capsule 0.8 mg PO DAILY Patient Comments: 2 capsule by mouth once a day amlodipine 10 mg tablet 10 mg PO 1XD Patient Comments: 1 tablet by mouth once a day diclofenac sodium 0.1 % Drops 1 drp ophthalmic (eye) PRN PRN omeprazole 20 mg capsule,delayed release(DR/EC) 20 mg PO 1XD Patient Comments: 1 capsule by mouth once a day hydrochlorothiazide 25 mg tablet 25 mg PO DAILY Patient Comments: 1 tablet by mouth once a day gabapentin 100 mg Capsule 100 mg PO HS albuterol 90 mcg/actuation Aerosol 2 mcg INHALATION TID calcium carbonate-vitamin D2 600 mg calcium- 200 unit Tablet 200 tab PO DAILY epinephrine 0.3 mg/0.3 mL Auto-Injector 0.3 mg IM ONCE PRN Rx Instructions: as a single dose; may repeat once losartan 100 mg tablet 100 mg PO DAILY Patient Comments: 1 tablet by mouth once a day glipizide 5 mg tablet 5 mg PO 1XD Patient Comments: 1 tablet by mouth twice a day carboxymethylcellulose Granules 0.5 grnl MISCELLANEOUS 4XD capsaicin 0.1 % Cream 0.1 applic TOPICAL BID cholecalciferol (vitamin D3) 25 mcg (1,000 unit) Tablet 25 mcg PO DAILY melatonin 5 mg Tablet 10 mg PO DAILY alogliptin 12.5 mg tablet 12.5 mg PO DAILY Patient Comments: 1 tablet by mouth once a day lidocaine [Lidoderm] 5 % adhesive patch,medicated 1 patch topical DAILY Qty: 15 0RF Rx Instructions: leave on most painful area for up to 12 hrs Discharge Instructions Additional Instructions: You have a broken bone which is why you are being put on antibiotics. I referred you to see an hand surgeon at [facility] after discussing the case with our orthopedic surgeon. If you do not follow-up with them within 10 days you should have the sutures removed at that point. If you feel more ill or have severe worsening pain return to the emergency department for reevaluation. HPI General Mode of arrival: ambulatory. Date/Time Provider Initiated Documentation: 06/15/25 11:02. Limitations to Documentation: no limitations. Information obtained by: patient. History of Present Illness 79 year old M presents to the emergency department with the chief complaint of left index finger laceration, described as mild, and is localized to the left and upper extremity. Patient started experiencing this hour(s) (1) and it has been constant. No relieving factors improve symptom(s), No exacerbating factors reported . Patient notes no other symptoms.. Related Data Home Medications ?Medication ?Instructions ?Recorded ?Confirmed albuterol 90 mcg/actuation aerosol 2 mcg inhalation TID 12/20/22 06/15/25 inhaler alogliptin 12.5 mg tablet 12.5 mg PO DAILY 12/20/22 12/20/22 amlodipine 10 mg tablet 10 mg PO 1XD 12/20/22 06/15/25 atorvastatin 40 mg tablet 40 mg PO 1XD 12/20/22 06/15/25 calcium carb-ergocalciferol (vit 200 tab PO DAILY 12/20/22 06/15/25 D2) 600 mg calcium-200 unit tablet capsaicin 0.1 % topical cream 0.1 applic topical BID 12/20/22 06/15/25 carboxymethylcellulose 0.5 grnl miscellaneous 4XD 12/20/22 12/20/22 cholecalciferol (vitamin D3) 25 25 mcg PO DAILY 12/20/22 12/20/22 mcg (1,000 unit) tablet clonidine HCl 0.1 mg tablet 0.1 mg PO BID 12/20/22 12/20/22 cromolyn 4 % eye drops 2 drp ophthalmic (eye) 4XD 12/20/22 12/20/22 diclofenac sodium 0.1 % eye drops 1 drp ophthalmic (eye) PRN PRN 12/20/22 12/20/22 epinephrine 0.3 mg/0.3 mL 0.3 mg IM ONCE PRN 12/20/22 12/20/22 injection, auto-injector fluticasone 250 mcg-salmeterol 50 1 inh inhalation BID 12/20/22 12/20/22 mcg/dose blistr powdr for inhalation gabapentin 100 mg capsule 100 mg PO HS 12/20/22 12/20/22 glipizide 5 mg tablet 5 mg PO 1XD 12/20/22 12/20/22 hydrochlorothiazide 25 mg tablet 25 mg PO DAILY 12/20/22 12/20/22 lidocaine 4 % topical patch 1 patch topical DAILY PRN 12/20/22 12/20/22 (Lidocaine Pain Relief) lidocaine 5 % topical patch 1 patch topical DAILY #15 ea 12/20/22 (Lidoderm) losartan 100 mg tablet 100 mg PO DAILY 12/20/22 12/20/22 melatonin 5 mg tablet 10 mg PO DAILY 12/20/22 12/20/22 multivitamin 1 tab PO DAILY 12/20/22 12/20/22 omeprazole 20 mg capsule,delayed 20 mg PO 1XD 12/20/22 12/20/22 release tamsulosin 0.4 mg capsule 0.8 mg PO DAILY 12/20/22 12/20/22 cephalexin 500 mg tablet 500 mg PO TID #15 tabs 06/15/25 Previous Rx's ?Medication ?Instructions ?Recorded lidocaine 5 % topical patch 1 patch topical DAILY #15 ea 12/20/22 (Lidoderm) cephalexin 500 mg tablet 500 mg PO TID #15 tabs 06/15/25 Allergies Allergy/AdvReac Type Severity Reaction Status Date / Time bacitracin Allergy Intermediate Hives Unverified 06/15/25 11:02 antivenin,crotalidae Allergy Unknown Other (See Unverified 06/15/25 11:02 polyvalent imm Comment) felodipine Allergy Unknown Other (See Unverified 06/15/25 11:02 Comment) niacin AdvReac Unknown Other (See Unverified 06/15/25 11:02 Comment) lisinopril AdvReac cough Unverified 06/15/25 11:02 General Stated Complaint: Laceration MÓNICA: 4 Review of Systems All systems reviewed & are unremarkable except as noted in HPI and below Constitutional Constitutional: Denies chills, Denies fever(s) and Denies weakness Cardiovascular Cardiovascular: Denies chest pain and Denies dyspnea Respiratory Respiratory: Denies dyspnea Gastrointestinal Gastrointestinal: Denies abdominal pain and Denies vomiting Neurologic Neurologic: Denies weakness Exam Const General: no acute distress Orientation: alert [facility] Head: normal to inspection Ears: external ears normal General nose exam: external nose normal Mouth: moist mucous membranes Eyes General: appearance normal, both eyes and all related structures Neck Neck: normal visual inspection Resp Effort & Inspection: normal respiratory effort and able to speak in complete sentences Cardio Rate: regular rate Skin General skin exam: no rashes or lesions noted Neuro General: patient alert and patient oriented x3 Extrem General: capillary refill normal Psych Mental Status: mental status grossly normal Course Vital Signs Vital signs: Vital Signs Temperature 36.9 C 06/15/25 10:54 Pulse 65 06/15/25 10:54 Respiratory Rate 18 06/15/25 10:54 Blood Pressure 177/97 H 06/15/25 10:54 Pulse Oximetry 95 06/15/25 10:54 Temperature 36.9 C 06/15/25 10:54 Pulse 65 06/15/25 10:54 Respiratory Rate 18 06/15/25 10:54 Blood Pressure 177/97 H 06/15/25 10:54 Pulse Oximetry 95 06/15/25 10:54 Oxygen Delivery Method Room Air 06/15/25 10:54 Oxygen Flow Rate 0 06/15/25 10:54 Medical Decision Making 79-year-old male comes in after he states he was cutting food with a knife and cut the posterior left index finger. Did not fall or sustain other injuries. He has a U-shaped laceration over the left posterior PIP joint. He is able to fully flex at the joint but is unable to fully extend. He has intact sensation. He is having quite a bit of bleeding and I placed a finger tourniquet. Placed 5 sutures to help tack the skin down and control of bleeding. Will obtain x-rays to evaluate for possible underlying fracture. Patient with underlying fracture. Reviewed the case with on-call orthopedics Dr. Campbell and will closed with sutures loosely and refer to hand surgery at [facility]. Patient understands this and all questions answered. Differential Diagnosis Differential Diagnosis: Laceration, abrasion, tendon injury PFSH All Active Problems (Updated 06/15/25 @ 13:22 by Michael Mg MD) Laceration of left index finger (Acute) Synovial cyst of popliteal space [Hess], right knee (Acute) Social History Smoking/Tobacco Use Status: Never Smoking risk assessment performed?: Yes Alcohol Intake: current Alcohol Intake frequency: a few times a week Drug use: Daily Substance use type: marijuana Do you feel safe at home: Yes Do you feel safe in your relationship?: Yes
--- NOTE | 2025-06-15 11:30 | DI.RAD_ITS ---
Exam(s) XR FINGER LT INDEX EXAM: XR FINGER LT INDEX CLINICAL HISTORY: posterior laceration, ?fracture. TECHNIQUE: 2D digital imaging was performed. COMPARISON: No exams were available for comparison FINDINGS: 3 views There is a displaced fracture of the dorsal aspect of the head of the proximal phalanx the 2nd-index finger and there is overlying soft tissue swelling. There is incidentally noted radiopaque foreign body in the soft tissues of the same index finger located dorsal to the midshaft of the middle phalanx and measuring 2 mm by less than 1 mm. Subjacent bone is unremarkable. No additional osseous findings in the hand. IMPRESSION: There is a fracture of the distal aspect of the proximal phalanx of the 2nd- index finger. Fracture fragment is displaced. Other findings as above. DATA REPOSITORY: RADIATION DOSE DELIVERED:
--- NOTE | 2025-06-15 12:52 | DI.VRAD_ITS ---
PROCEDURE INFORMATION: Exam: XR Left Finger(s) Exam date and time: 06/15/2025 11:50 AM Age: 79 years old Clinical indication: Other: Posterior laceration, ? fracture left index finger TECHNIQUE: Imaging protocol: Radiologic exam of the left fingers. Views: Minimum 2 views. COMPARISON: No relevant prior studies available. FINDINGS: Bones/joints: Bony structures are mildly osteopenic. Degenerative changes are seen in the interphalangeal joints with prominent degenerative change at the basal joint of the thumb and the STT joint. There is fracture distal and radial aspect proximal phalanx 2nd digit, with dorsal displacement of fracture fragment best seen on the lateral film. No other acute fracture visualized. Soft tissues: There is significant soft tissue swelling particularly at the PIP joint of the 2nd digit. There is calcification or a foreign object noted within the dorsal soft tissues adjacent to the middle phalanx of the 2nd digit. IMPRESSION: 1. Fracture distal aspect proximal phalanx 2nd digit as described. Soft tissue swelling 2. DJD. Dictated and Authenticated by: Maegan Barboza MD. Orderin Haritha Rodriguez MD
[2025-06-15] MEDS: Cephalexin 500 MG CAP PO (13:29)
[2025-06-15 13:40] VITALS: BP 164/84; PULSE 75; RESP 15; O2SAT 98
== END 2025-06-15 13:40 | disposition home or self-care (01) ==
PROVIDERS: Emergency Provider Emergency Medicine; PCP Nurse Practitioner Primary Care
DX: W26.0XXA Contact with knife, initial encounter; S62.611A Displaced fracture of proximal phalanx of left index finger, initial encounter for closed fracture; S61.211A Laceration without foreign body of left index finger without damage to nail, initial encounter
CPT/HCPCS: 99284; 99283; 73140